=== PATIENT | female | born 1940 | race Caucasian/White ===

== ENCOUNTER → 2020-05-06 09:35 | Outpatient (CLI) | payer MEDICARE, OTHER, SELFPAY ==
[2020-05-07 02:22] LABS: COVID19 Sendout Not Detected (Not Detect)
== END ==
PROVIDERS: Visit Provider Physician Assistant
DX: Z11.59 Encounter for screening for other viral diseases (principal)
CPT/HCPCS: 87635

== ENCOUNTER 2020-05-09 06:37 | Day surgery (SDC) | payer MEDICARE, OTHER, SELFPAY ==
[2020-05-09] VITALS (10 sets, daily range): BP systolic 132–181; BP diastolic 61–89; PULSE 60–79; RESP 10–20; TEMP 36.1–37.2; O2SAT 94–100; BMI 28.8
--- NOTE | 2020-05-09 | PATH_ITS ---
[facility] Accession Number: [id number] . 01 Material submitted: . PART A: hepatic flexure - HEPATIC FLEXURE POLYP PART B: colon - APPENDICEAL BIOPSY . 01 Clinical history: . SCREENING COLONOSCOPY . 02 Diagnosis: A. Hepatic Flexure, Polyp, Biopsy: Inflammatory polyp. . B. 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 MRV 05/13/2020 1204 Local . 02 Electronically signed: . Ashley Lawrence MD, Pathologist NPI- [id number] . 01 Gross description: . Part A: HEPATIC FLEXURE POLYP: Received in formalin is 1 fragment(s) of eid, soft tissue measuring 0.6 x 0.6 x 0.5 cm submitted entirely in 1 cassette(s) Part B: APPENDICEAL BIOPSY: Received in formalin are 3 fragment(s) of eid, soft tissue measuring 0.1 x 0.1 x 0.1 cm to 0.3 x 0.2 x 0.2 cm submitted entirely in 1 cassette(s) /AYSE 05/10/2020 0137 Local . 02 Pathologist provided ICD-10: D12.6 . 02 CPT . 311541, [id number] Performed at: 01 [facility] [address] [facility], [place], [place] [id number] MD Willie Baca MD Phone: [phone] Performed at: 02 [facility] [address] [place], [place] [id number] MD Ashley Lawrence MD Phone: [phone]
--- NOTE | 2020-05-09 07:43 | PM.HP.1 ---
History of Present Illness History of Present Illness Date Patient Seen: 05/09/20 Time Patient Seen: 07:33 Chief complaint: SCREENING COLONOSCOPY Narrative: The patient is a woman here for screening colonoscopy. Her last exam was 10 years ago. Patient History Surgical History Status post cholecystectomy Status post vaginal hysterectomy Family & Social History Family History Grandmother Cancer Social History: household members spouse Tobacco & Substance use: Smoking Status Never smoker alcohol intake current alcohol intake frequency holiday/special occasion Substance Use Type does not use Meds Home Medications and Allergies Home Medications Medication Instructions Recorded Confirmed Type Conjugated Estrogens (PREMARIN) 0.625 mg PO QDAY 05/09/20 05/09/20 History Allergies Allergy/AdvReac Type Severity Reaction Status Date / Time Diphenhydramine AdvReac Unknown Uncoded 05/09/20 07:07 Review of Systems Review of Systems Narrative: Had some minor bleeding during the bowel prep ROS: Yes All systems reviewed with the patient and are negative except as otherwise documented Exam Vital Signs (past 8 hours): - 05/09/20 07:14 Temperature 97.8 F Pulse Rate 79 Respiratory Rate 16 Blood Pressure 181/89 H Pulse Oximetry 95 Oxygen Delivery Method Room Air Narrative Exam Narrative: Pleasant cooperative patient no apparent distress. Lungs are clear to auscultation. No rales or rhonchi. Heart regular rate and rhythm no murmur gallop. Abdomen is soft nontender without mass. No obvious hernias. Patient is alert and oriented x3. Assessment & Plan Assessment & Plan narrative: The patient for a screening colonoscopy. I have discussed the procedure with them. Risks of bleeding, perforation which would necessitate major operation, failure to find remove all lesions, the potential tattoo were all discussed. All questions were answered. They wished to proceed.
--- NOTE | 2020-05-09 07:44 | PM.PREOP ---
Pre-operative Note COVID-19 COVID-19 status: Negative Result date/Date tested (Pos, Neg/Pending): 05/06/20 Interval Note History & Physical reviewed/Exam performed by Physician: Yes Changes to H&P: No ASA Class (for procedural sedation): II
[2020-05-09] MEDS: LACTATED RINGERS 1,000 ML 200 ML IV (07:45)
[2020-05-09] MEDS: ONDANSETRON 4 MG/2 ML INJ IV (07:50)
[2020-05-09] MEDS: MIDAZOLAM 5 MG/5 ML VIAL IV (07:52)
[2020-05-09] MEDS: fentaNYL 250 MCG/5 ML INJ IV (07:52)
--- NOTE | 2020-05-09 08:23 | SUR.PHASEI ---
0815 - Report received from Albin Ko RN 0822 - Pt returning to endo to complete procedure with anesthesiologist (Dr Watkins).
--- NOTE | 2020-05-09 09:05 | PM.OP.ENDO ---
Operative Date/Time/Diagnoses Date of procedure: 05/09/20 Time of procedure: 09:05 Pre-op diagnosis: Screening exam. Last colonoscopy 10 years ago. No family history of colon cancer. Post-op diagnosis: same (Single 1 cm polyp at the transverse colon near the hepatic flexure. Snared and removed. Slight abnormality in side the appendiceal opening. May be a normal variant. Biopsies taken.) Procedure & Clinicians Study performed: Colonoscopy with hot snare polypectomy and cold biopsy. Same procedure as scheduled: Yes Indications: Screening exam Surgeon: Junior Hsieh Procedure Notes SCOAP/Timeout: Performed Procedure in detail: The patient was placed in the left lateral decubitus position underwent IV sedation directed by the surgeon consisting of fentanyl and Versed. She is also given Zofran due to history of nausea after procedure. Digital exam was remarkable for an increased sphincter tone. The scope was inserted and advanced through the rectum into the sigmoid colon. I met with a lot of resistance and tortuosity and got to about 40 cm. The patient was poorly tolerating the procedure and I did not have the ability to sedate heard further because she was hedge Ng of the edge of deep sedation at that point already. There also was a fair amount of resistance and advancing the scope and rather than perforated her I brought the scope out. The patient was sent to the recovery room with the intention of scheduling a barium enema. There was a delay however in the need for an anesthesiologist in 1 of the rooms and he agreed to perform deep sedation so I could re-attempt the colonoscopy. The patient was brought back to the endoscopy suite and underwent deep sedation managed by the anesthesiologist. This time I was able to advanced through the rectum into the sigmoid descending transverse and ascending colon reaching the cecum ultimately. On the way in I snared a polyp about a cm in size. We retrieved that lesion. The cecum was identified by the ileocecal valve and the appendiceal opening. In the appendiceal opening there was a slight irregularity and I chose to biopsy this region. The scope was then gradually brought out. I could identify no other mucosal lesions. The scope was retroflexed in the rectum of the patient did have 1 large hemorrhoid. The scope was removed and the patient tolerated the procedure well. Scope withdrawal time: 7 minutes with the full exam Sedation minutes: 13 (Sedation by surgeon during 1st portion of procedure) Findings: polyp and other findings (Irregularity at the appendiceal opening) Specimen(s): other (Biopsy of the appendiceal opening and polyp) Complications: none Post-procedure Recommendations: Colonscopy in 5 years (Due to finding a polyp.) Follow up: as needed Disposition: PACU
--- NOTE | 2020-05-09 09:53 | SUR.PHASEII ---
pt given d/c instructions states she understands them and is ready to go. Pt drinking fluids well. No nausea or pain noted.
== END 2020-05-09 09:54 | disposition home or self-care (01) ==
PROVIDERS: Referring Provider Specialist; Visit Provider Specialist
PROC: 0DJD8ZZ Inspection of Lower Intestinal Tract, Via Natural or Artificial Opening Endoscopic (ICD-10-PCS; CPT 45378; principal; 2020-05-09 07:45)
DX: Z12.11 Encounter for screening for malignant neoplasm of colon (principal); K64.0 First degree hemorrhoids; D12.6 Benign neoplasm of colon, unspecified
CPT/HCPCS: 45385; 45380; 99152; J2250; J2405; J2704; J3010

== ENCOUNTER → 2023-01-04 15:38 | Outpatient (CLI) | payer MEDICARE, OTHER, SELFPAY ==
--- NOTE | 2023-01-04 | DI.US.S_ITS ---
PROCEDURE: US PERIPH VENOUS LOW EXTREM RT INDICATIONS: CHRONIC DEEP VEIN THROMBOSIS TECHNIQUE: Real-time imaging, as well as color and pulse Doppler interrogation, were performed of the lower extremity deep veins from the inguinal ligament to the popliteal fossa. COMPARISON: None. FINDINGS: The common femoral, femoral and popliteal veins are normally compressible, and free of intraluminal thrombus. Color and pulse Doppler demonstrate normal phasic intraluminal flow. There is normal augmentation response to distal compression maneuver. IMPRESSION: 1. No DVT in the right lower extremity. Dictated by: Negrita Ghosh M.D. on 01/04/2023 at 18:23 Approved by: Negrita Ghosh M.D. on 01/04/2023 at 18:24
== END ==
PROVIDERS: PCP Naturopath; Referring Provider Naturopath; Visit Provider Naturopath
DX: I82.91 Chronic embolism and thrombosis of unspecified vein (principal)
CPT/HCPCS: 93971

== ENCOUNTER → 2024-01-07 13:25 | Outpatient (CLI) | payer MEDICARE, OTHER, SELFPAY ==
--- NOTE | 2024-01-07 13:31 | DI.US.S_ITS ---
PROCEDURE: US RENAL COMPLETE INDICATIONS: HIP PAIN TECHNIQUE: Real-time scanning was performed of the kidneys and bladder, with image documentation. COMPARISON: None. FINDINGS: Kidneys: The right kidney measures 10.5 cm in length. Normal echogenicity. No hydronephrosis or renal stone. There is a minimally complex cyst in the right kidney with thin internal septation, measuring 2.7 cm. Patient is status post left nephrectomy. Bladder: Prevoid bladder volume measures 42 cc. Ureteral jets are not visualized. Miscellaneous: No free pelvic fluid. IMPRESSION: Minimally complex cyst in the right kidney. Status post left nephrectomy. Dictated by: Missy Rodriguez M.D. on 01/07/2024 at 14:52 Approved by: Missy Rodriguez M.D. on 01/07/2024 at 14:55
--- NOTE | 2024-01-07 13:32 | DI.RAD.S_ITS ---
PROCEDURE: XR HIP W PEL IF DONE BILAT 2V INDICATIONS: HIP PAIN TECHNIQUE: AP pelvis with lateral view(s) of the bilateral hip(s). COMPARISON: None. FINDINGS: Bones: No fractures or dislocations. Pelvic ring appears intact. No suspicious bony lesions. Degenerative changes are present within the lower lumbar spine. There is moderate bilateral degenerative hip joint space narrowing. Soft tissues: The visualized bowel gas pattern is normal. No suspicious soft tissue calcifications. 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 Dictated by: Anca Hoyt M.D. on 01/07/2024 at 14:17 Approved by: Anca Hoyt M.D. on 01/07/2024 at 14:17
== END ==
PROVIDERS: PCP Naturopath; Referring Provider Naturopath; Visit Provider Naturopath
DX: M47.816 Spondylosis without myelopathy or radiculopathy, lumbar region (principal); R10.9 Unspecified abdominal pain; Z90.5 Acquired absence of kidney; M25.551 Pain in right hip; M25.552 Pain in left hip
CPT/HCPCS: 73521; 76770